=== PATIENT | female | born 1970 | race Two or more races ===

== ENCOUNTER → 2024-11-03 | Outpatient (CLI) | payer OTHER, SELFPAY ==
--- NOTE | 2024-11-03 12:00 | XR_ITS ---
Examination: Breast ultrasound complete, bilateral Date and time of exam: November 03, 2024 1219 hours INDICATIONS: Patient states palpable right breast lump 1:00 position note is beginning one week ago, family history breast cancer, mother Technique: Real-time grayscale ultrasonographic imaging bilateral breasts, including all 4 quadrants as well as nipple retroareolar and axillary regions. Findings: Sonographic images right breast 1:00 nodule indistinct margins 18 x 14 x 25 mm 9:00 cyst 6 x 6 mm 11:00 cyst 4 x 3 mm Sonographic images left breast 12:00 nodule circumscribed 11 x 8 mm 4:00 cyst 8 x 11 mm IMPRESSION: BI-RADS Category 4: Suspicious for malignancy Suspicious mass right breast 1:00 position, 18 x 14 x 25 mm, biopsy is needed to exclude breast carcinoma, this mass is amenable to ultrasound-guided breast biopsy for diagnosis
--- NOTE | 2024-11-03 13:00 | XR_ITS ---
Examination: Diagnostic digital mammography, bilateral Computer aided detection 3-D breast Tomosynthesis, bilateral Date and time of exam: November 03, 2024 1243 hours INDICATIONS: Mammogram January 26, 2024 focal asymmetry outer right breast, 12:00 position left breast Technique: Nonmagnified MLO, CC views of the breasts to been obtained, reconstructed from 3-D Tomosynthesis images. R2 computer aided detection program utilized for evaluation of suspicious masses and/or abnormal calcifications. 3-D Tomosynthesis images obtained. Findings: The breasts are heterogeneously dense, which may obscure small masses 25 mm nodule indistinct margins at the palpable marker site upper right breast, likely corresponding to 1:00 nodule on right breast sonogram today 18 x 14 x 25 mm Spot compression left breast films do not confirm suspicious mass Impression: BI-RADS Category 4: Suspicious for malignancy Suspicious mass upper right breast, better demonstrated in the 1:00 position right breast sonogram today, biopsy of this nodule is needed to exclude breast carcinoma, the mass is amenable to ultrasound-guided breast biopsy for diagnosis.
== END | disposition home or self-care (01) ==
DX: R92.343 Mammographic extreme density, bilateral breasts (principal); N63.12 Unspecified lump in the right breast, upper inner quadrant
CPT/HCPCS: 76641; 77062; 77066; G0279

== ENCOUNTER → 2024-12-28 | Outpatient (CLI) | payer OTHER, SELFPAY ==
[2024-12-27 09:53] LABS: Basophils # (Auto) 0.1 Thou/mm3 (0.0-0.2); Basophils % (Auto) 1 % (0-2.5); Eosinophils # (Auto) 0.1 Thou/mm3 (0.0-0.5); Eosinophils % (Auto) 2 % (0-10); Hematocrit 42.9 % (36.0-46.0); Hemoglobin 14.2 g/dL (12.0-16.0); Immature Granulocytes Auto 0.01 Thou/mm3 (0.00-0.00); Lymphocytes # (Auto) 3.2 Thou/mm3 (1.0-4.8); Lymphocytes % (Auto) 42 % (10-50); Mean Corpuscular HGB Conc 33.1 g/dl (31.0-37.0); Mean Corpuscular Hemoglobin 31.8 pg (25.0-35.0); Mean Corpuscular Volume 96 fL (80-100); Monocytes # (Auto) 0.6 Thou/mm3 (0.0-0.8); Monocytes % (Auto) 9 % (0-12); Neutrophils # (Auto) 3.5 Thou/mm3 (1.8-7.7); Neutrophils % (Auto) 47 % (37-80); Nucleated Red Blood Cell # 0.00 Thou/mm3 (0.00-0.00); Nucleated Red Blood Cell % 0 /100 WBC (0); Platelet Count 274 Thou/mm3 (140-440); RDW Standard Deviation 43.3 fL (36.4-46.3); Red Blood Count 4.46 Miln/mm3 (4.00-5.20); White Blood Count 7.4 Thou/mm3 (3.6-11.0)
[2024-12-27 10:25] LABS: INR 0.9 (0.9-1.3); Partial Thromboplastin Time 26.7 Seconds (22.0-36.0); Prothrombin Time 10.1 Seconds (9.0-12.2)
--- NOTE | 2024-12-28 10:30 | XR_ITS ---
Examinations: Ultrasound-guided percutaneous breast biopsy, right breast 1:00 nodule Left breast sonography limited INDICATIONS: BI-RADS 4 suspicious nodule right breast on sonogram November 03, 2024 Exam date and time: December 28, 2024 1045 hours. Informed consent provided. Technique: A timeout was completed verifying correct patient, procedure, site, positioning, and special equipment if applicable Informed consent provided. The patient was placed in a supine position for the breast biopsy. Sonographic images of the breast were performed for localization of the suspicious nodule The patient's breast was prepped and draped in sterile fashion. Maximum sterile barrier technique, hand hygiene, ultrasound sterile technique 1% lidocaine was used to anesthetize the skin and breast adjacent to the suspicious nodule. Utilizing ultrasonographic guidance, 8 core biopsies were obtained of the suspicious nodule utilizing an 18-gauge BioPince needle. The specimens appears satisfactory. US guided breast biopsy marker placement. Estimated blood loss 3 cc. The patient tolerated the procedure well and there were no complications. Impression: Successful ultrasound-guided percutaneous breast biopsy, right breast 1:00 nodule. Ultrasound guided breast biopsy marker placement.
== END | disposition home or self-care (01) ==
LOC: SDIM 12-29 07:21
PROVIDERS: Radiology Diagnostic Radiology
DX: R92.8 Other abnormal and inconclusive findings on diagnostic imaging of breast (principal); N63.10 Unspecified lump in the right breast, unspecified quadrant
CPT/HCPCS: 36415; 85025; 85610; 85730; A4648

== ENCOUNTER 2025-03-01 05:55 | Day surgery (SDC) | payer MEDICAID, SELFPAY ==
[2025-02-28 11:10] VITALS: BMI 30.9
[2025-02-28 12:10] LABS: Basophils # (Auto) 0.0 Thou/mm3 (0.0-0.2); Basophils % (Auto) 1 % (0-2.5); Eosinophils # (Auto) 0.1 Thou/mm3 (0.0-0.5); Eosinophils % (Auto) 2 % (0-10); Hematocrit 41.5 % (36.0-46.0); Hemoglobin 14.1 g/dL (12.0-16.0); Immature Granulocytes Auto 0.01 Thou/mm3 (0.00-0.00); Lymphocytes # (Auto) 2.7 Thou/mm3 (1.0-4.8); Lymphocytes % (Auto) 40 % (10-50); Mean Corpuscular HGB Conc 34.0 g/dl (31.0-37.0); Mean Corpuscular Hemoglobin 31.8 pg (25.0-35.0); Mean Corpuscular Volume 94 fL (80-100); Monocytes # (Auto) 0.5 Thou/mm3 (0.0-0.8); Monocytes % (Auto) 8 % (0-12); Neutrophils # (Auto) 3.4 Thou/mm3 (1.8-7.7); Neutrophils % (Auto) 50 % (37-80); Nucleated Red Blood Cell # 0.00 Thou/mm3 (0.00-0.00); Nucleated Red Blood Cell % 0 /100 WBC (0); Platelet Count 281 Thou/mm3 (140-440); RDW Standard Deviation 40.7 fL (36.4-46.3); Red Blood Count 4.43 Miln/mm3 (4.00-5.20); White Blood Count 6.8 Thou/mm3 (3.6-11.0)
[2025-02-28 12:45] LABS: INR 1.0 (0.9-1.3); Partial Thromboplastin Time 27.3 Seconds (22.0-36.0); Prothrombin Time 10.3 Seconds (9.0-12.2)
[2025-02-28 13:18] LABS: Alanine Aminotransferase 50 U/L (10-49); Albumin, Serum 5.1 gm/dL (3.5-5.0); Albumin/Globulin Ratio 1.7 (1.2-2.2); Alkaline Phosphatase 99 U/L (46-116); Anion Gap 11 (7-16); Aspartate Amino Transferase 47 U/L (0-34); BUN/Creatinine Ratio 13 Ratio (12-20); Bilirubin,Total 0.4 mg/dL (0.3-1.2); Blood Urea Nitrogen 9 mg/dL (9-23); Calcium 9.8 mg/dL (8.3-10.6); Calcium (Corrected) 9.8 mg/dL (8.5-10.1); Carbon Dioxide 28.7 mMol/L (20.0-31.0); Chloride 103 mMol/L (98-107); Creatinine (Component) 0.7 mg/dL (0.6-1.3); Estimated Creatinine Clearance 83.1 mL/min (>60); Globulin 3.0 gm/dL (2.3-3.5); Glucose 105 mg/dL (74-106); Osmolality,Calculated 283 (275-295); Potassium 4.4 mMol/L (3.4-5.1); Sodium 143 mMol/L (136-145); Total Protein 8.1 gm/dL (5.7-8.2); eGFR > 60 See Note
[2025-02-28 15:25] LABS: HCG,Qualitative Serum Negative
[2025-03-01] VITALS (10 sets, daily range): BP systolic 115–163; BP diastolic 71–101; PULSE 72–113; RESP 12–20; TEMP 36.2–36.7; O2SAT 95–99; BMI 30.8
--- NOTE | 2025-03-01 08:00 | XR_ITS ---
EXAMINATION: AP chest single view TECHNIQUE: AP portable supine chest single view Date and time: March 01, 2025903 hours INDICATIONS: Port-A-Cath insertion today. FINDINGS: Right subclavian Port-A-Cath line right atrium No pneumothorax IMPRESSION: Right subclavian Port-A-Cath line in satisfactory position EXAMINATION: AP chest single view TECHNIQUE: Portable AP supine chest single view Date and time: March 01, [id number] hours INDICATION: Port-A-Cath insertion FINDINGS: Right subclavian Port-A-Cath line in satisfactory position No pneumothorax
--- NOTE | 2025-03-01 09:51 | SUR.PHASEI ---
0951 Patient arrived to recovery resting comfortably in [facility], on oxygen 6L via oxy mask, patient coughing upon arrival to recovery, opening her eye and able to follow verbal prompting, oral airway removed, patient then drifted to sleep, breathing unlabored, vital signs stable with exception patient heart rate elevated 113, anesthesia provider aware, no new order, will monitor, dressing intact to bilateral upper chest; to the right- dissolvable sutures, adaptic, gauze, medipore tape, left chest-gauze, medipore tape, no bleeding noted, report received from Dr. Teran and Pieter PRIDE
[2025-03-01] MEDS: ONDANSETRON INJ 2 MG/ML INJ 2 ML 4 MG IVP (10:21)
--- NOTE | 2025-03-01 10:23 | PD.SUROPNT ---
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 [facility]-Rite ultrasound was used to identify the right subclavian vein and I chose this for insertion of the Port-A-Cath. After the patient's chest and neck were prepped with chloreprep solution and draped I used a mini stick to get into the right subclavian vein. Then I passed a small guidewire measuring 0.018 inch in diameter into the vein. Then this was switched over to a catheter to accommodate larger guidewire measuring 0.035 inches in diameter which was basically a J-wire. Then I used a 9 Emirati valved vessel dilator over the guidewire which was then pulled out. Then I introduced a 8 [place] polyurethane catheter from the [employer] and positioned it on the distal part of the superior vena cava. An x-ray was obtained to confirm the position of the tip. The tip was about 22 cm from the entry site. Then I made a small pocket 5 cm's below the entry site on the right chest below the clavicle to accommodate the port after injecting local anesthesia with 1% Xylocaine. Then I tunneled the polyurethane catheter from the entry site to this pocket in the chest wall and I connected it to regular size port from [employer] called profuse using a catheter lock. Excellent blood return was obtained at the end of the procedure and this was flushed with heparinized saline. Then the port was attached to the chest wall muscle using 0 Vicryl sutures. Subcutaneous tissues was closed with 3-0 chromic and the skin by 5-0 nylon stitches. Dressing was applied with Adaptic and 4 x 4 and the patient tolerated the procedure well and left operating room in stable condition. Anesthesia other (General LMA) Pathology / specimen None IVF Infused 800 Estimated Blood Loss 20 Surgeon Ely Gaines MD Surgical Staff Operation Date: 03/01/25 08:00 Case Staff Anesthesiologist: Seng Teran
--- NOTE | 2025-03-01 10:26 | XR_ITS ---
EXAMINATION: AP chest single view TECHNIQUE: AP portable semiupright chest single view Date and time: March 01, 2025, 1040 hours INDICATIONS: Postop Port-A-Cath insertion. FINDINGS: Right subclavian Port-A-Cath tip satisfactory position No pneumothorax Normal heart size IMPRESSION: Right subclavian Port-A-Cath tip satisfactory position
[2025-03-01] MEDS: METOCLOPRAMIDE INJ 5 MG/ML VIAL 2 ML 10 MG IVP (10:34)
[2025-03-01] MEDS: ACETAMINOPHEN IVPB 1,000 MG/100 ML VIAL 250 MG IV (10:37)
--- NOTE | 2025-03-01 11:47 | SUR.PHASEII ---
1147 patient meets discharge criteria from recovery, awake and alert, breathing unlabored, vital signs stable, per patient her pain is tolerable, eating ice chips her tolerating well, assisted with dressing into her clothing by her , patient voided in the restroom prior to dishcarge, discharge instructions given to patient, patients and her sister with the assistance of the [facility] toll line repairer Viviane, patients signed discharge instructions. Patient given all her belongings prior to discharge, transported via wheelchair and left in a private vehicle.
== END 2025-03-01 11:47 | disposition home or self-care (01) ==
PROVIDERS: Referring Provider Surgery; Visit Provider Surgery
PROC: (CPT 36561; principal; 2025-03-01 08:00)
DX: I87.1 Compression of vein (principal); C50.211 Malignant neoplasm of upper-inner quadrant of right female breast; Z17.421 Hormone receptor negative with human epidermal growth factor receptor 2 negative status
CPT/HCPCS: 36561; 36415; 71045; 71046; 80053; 84703; 85025; 85610; 85730; A4649; C1788; C1894; J0131; J1643; J2250; J2405; J2704; J2765; J3010